=== PATIENT | female | born 1985 ===

== ENCOUNTER 2019-05-19 22:07 | Emergency (ER) | payer OTHER ==
[~2019-05-19] VITALS: Ht 167.6 cm; Wt 71.7 kg
[~2019-05-19 22:07] MED LIST: BENADRYL50 MG PO; INVOKANA100 MG; MEDROL4 MG PO; PROVENTIL3 ML/2.5 M IH; SKELAXIN800 MG PO; TUSSIONEX PENNKI5 ML PO; ULTRACET PO; ZITHROMAX500 MG PO
[2019-05-19] MEDS ORDERED: SINGULAIR10 MG (22:19)
[2019-05-19] MEDS ORDERED: INVOKANA300 MG (22:19)
[2019-05-19] MEDS ORDERED: SYMBICORT 16010.2 GM (22:19)
[2019-05-19] MEDS ORDERED: SPIRIVA RESPIMAT4 G1 (22:20)
[2019-05-20] MEDS ORDERED: ZOFRAN8 MG PO (05:10)
[2019-05-20] MEDS ORDERED: PEPCID AC20 MG PO (05:10)
[2019-05-20] MEDS ORDERED: CIPRO500 MG PO (05:10)
== END 2019-05-20 05:28 | disposition home or self-care (01) ==
LOC: ER 22:07
DX: K52.89 Other specified noninfective gastroenteritis and colitis (principal)